=== PATIENT | male | born 1955 | race Caucasian/White ===

== ENCOUNTER 2016-10-23 13:14 | Inpatient (IN) | payer MEDICARE, OTHER ==
[~2016-10-23] VITALS: Ht 180.3 cm; Wt 117.0 kg
--- NOTE | ~2016-10-23 | US89 ---
[facility] A Service of [facility] & [facility] RADIOLOGY TEXT RESULTS PATIENT: FIOR CONNORS LOCATION: A : 54 UNIT #: [id number] AGE: [address]: Corie Johnson MD SEX: M ORDER DR: [id number] [facility] [address] [place], [place] [address] [id number] MR#: [id number] #: [id number] NAME: FIOR CONNORS : 1955 SEX: M STUDY DATE/TIME: 10/23/2016 13:50 UNIT: [facility] ROOM: [facility] STUDY DESCRIPTION: US Lower Ext Arterial Exam Attending Physician: Corie Johnson M.D. Ordering Physician: Mary Perez P.A.-C. Primary Care Physician: Manoj Walter M.D. MEDICAL IMAGING REPORT This report is preliminary unless electronic signature is present EXAM Bilateral lower extremity arterial PVR HISTORY Bilateral lower extremity claudication for several years. Lower extremity numbness and tingling. Evaluate for peripheral vascular disease. FINDINGS Peak brachial pressures are 129 on the right and 116 on the left. At the right ankle, peak pressures are 133 dorsalis pedis and 140 posterior tibial, for a ankle-brachial index of 1.03 at the dorsalis pedis and 1.09 at the posterior tibial. Right great toe pressure is 95 for a toe - brachial index of 0.74. At the left ankle, peak pressures are 148 posterior tibial and 134 dorsalis pedis, for an ankle-brachial index of 1.15 at the posterior tibial and 1.04 at the dorsalis pedis. The left great toe pressure is 127 for a toe - brachial index of 0.98. Normal pulse volume recordings at the ankles bilaterally. IMPRESSION Normal examination. Normal ankle-brachial indices measuring 1.09 on the right and 1.15 on the left. Dictated by... Joshua Koehler M.D. THIS IS AN ELECTRONICALLY VERIFIED REPORT Joshua Koehler M.D. at 10/23/2016 11:35 PM DFL/rnr [facility] A Service of [facility] & [facility] RADIOLOGY TEXT RESULTS PATIENT: FIOR CONNORS LOCATION: [facility] 217-01 : 54 UNIT #: [id number] AGE: [address]: Corie Johnson MD SEX: M ORDER DR: TD: 10/23/2016 22:20 JOB #: [id number] MEDICAL IMAGING REPORT Page 1 of 1 COPY
--- NOTE | ~2016-10-23 | DS ---
Unit #: [id number] #: [id number] Patient: FIOR CONNORS [id number] [address] [address] [id number] I MR#: [id number] NAME: FIOR CONNORS ROOM: 217 Age: 61 Sex: M Admission Date: 10/23/2016 : 1955 Discharge Date: 10/25/2016 Attending Physician: Shiela Urrutia M.D. Primary Care Physician: Manjo Walter M.D. DISCHARGE SUMMARY PRIMARY CARE PROVIDER Dr. Manoj Walter. PRINCIPAL DIAGNOSES 1. Right leg cellulitis likely staph-induced failing outpatient treatment. 2. Chronic respiratory failure, maintained on 4 L of oxygen per nasal cannula continuously. 3. Hypertension. 4. Chronic obstructive pulmonary disease. 5. Chronic diastolic congestive heart failure without exacerbation. 6. Depression. 7. Pulmonary hypertension. 8. Degenerative disk disease. 9. Tobaccoism. 10. Obesity. 11. Polycythemia. 12. Thrombocytopenia. 13. Gastroesophageal reflux disease. CONSULTANTS None. PROCEDURES Bilateral lower extremity arterial Doppler which was normal. Right ankle brachial indices 1.09 and 1.15 on the left. Chest x-ray on 10/23/2016 which was negative. CLINICAL HISTORY AND HOSPITAL COURSE Mr. Connors is a 61-year-old male, who presents to the emergency department with increasing right leg swelling and erythema. The patient had venous Doppler done on 10/10/2016 as an outpatient, which was negative for DVT. The patient was placed on clindamycin, however, he is still having increasing swelling and redness of the right leg and subsequently presented to the emergency department. ABIs done in the emergency department was unremarkable. The patient was afebrile and had no evidence of leukocytosis. He was placed in the hospital for treatment of cellulitis failing outpatient therapy. The patient was placed on empiric vancomycin and Zosyn. He has remained afebrile and again white blood cell count has remained normal. His cellulitis is improving, but it might appear to be somewhat slow on current antibiotics. I am going to change him to Zyvox and watch him for portion of the day. The patient is adamant. He would like to go home Unit #: [id number] #: [id number] Patient: FIOR CONNORS today as he has show some clinical improvement later in the day on Zyvox and we can get it arrange. He can be discharged home later today. I will note, the patient had persistent polycythemia and thrombocytopenia. I suspect his thrombocytosis is secondary to hypoxia particularly given he likely has obstructive sleep apnea requiring CPAP therapy, this can be followed up as an outpatient. DISCHARGE CONDITION Stable. DISCHARGE STATUS Discharged to home. DISCHARGE MEDICATIONS Lyrica 200 mg b.i.d., Abilify 10 mg daily, Klonopin 0.5 mg b.i.d., Norvasc 5 mg daily, Lasix 40 mg daily, Percocet 7.5/325 one tablet p.o. q.i.d. p.r.n. for pain, OxyContin 30 mg b.i.d., Nexium 40 mg daily, Klor-Con 20 mEq b.i.d., folic acid 1 mg daily, vitamin B12 1000 mcg p.o. daily, and Zyvox 600 mg p.o. b.i.d. for 10 days. DISCHARGE INSTRUCTIONS The patient was instructed to follow a heart healthy low calorie diet. He can increase activity as tolerated. He wears oxygen at 4 L per nasal cannula at all times. FOLLOWUP The patient can follow up with his primary care provider, Dr. Walter, next week. Dictated by... Shiela Urrutia M.D. LUDWIN/lee ann TD: 10/27/2016 23:57 JOB #: [id number] DISCHARGE SUMMARY Page 1 of 1 X hSiela Urrutia MD DISCHARGE SUMMARY
--- NOTE | ~2016-10-23 | HP ---
Unit #: [id number] #: [id number] Patient: FIOR CONNORS [id number] [address] [address] [id number] I MR#: [id number] NAME: FIOR CONNORS. ROOM: 82565 Age: 61 Sex: M Admission Date: 10/23/2016 : 1955 Attending Physician: Corie Johnson M.D. Primary Care Physician: Manoj Walter M.D. HISTORY AND PHYSICAL CHIEF COMPLAINT Right leg swelling. HISTORY OF PRESENT ILLNESS The patient is a 61-year-old male with a past medical history of hypertension, COPD, chronic respiratory failure, CHF, degenerative disc disease, depression, diverticular disease, and pulmonary hypertension, who presented to the emergency department for evaluation of the above. The patient states that he noticed redness in his leg about a month ago. The redness and swelling have resolved in the past with elevation of the leg. This persisted. He saw his primary care physician and was prescribed clindamycin. He still has a few pills left. The symptoms have persisted and in fact gotten worse, and so he presented to the emergency department for further evaluation. In the emergency department, ankle-brachial indices were normal. Chest x-ray showed nothing acute. He was given vancomycin, as well as Percocet. He is being admitted to [facility] for evaluation and further treatment. PAST MEDICAL HISTORY 1. Admission to [facility] May 15-2016, for acute respiratory failure and COPD. 2. Chronic obstructive pulmonary disease followed by Dr. Gerber. 3. Chronic respiratory failure on four liters of oxygen continuous. 4. Congestive heart failure. The patient had an echocardiogram March 03, 2012, that showed an ejection fraction greater than 55%. 5. Degenerative disc disease. 6. Depression. 7. Diverticular disease. 8. Gastritis. 9. Hypertension. 10. Pulmonary hypertension. PAST SURGICAL HISTORY 1. Back surgery. 2. Leg surgery. 3. Finger surgery. SOCIAL HISTORY The patient lives with his . He smokes a pack of cigarettes daily. FAMILY HISTORY Unit #: [id number] #: [id number] Patient: FIOR CONNORS Notable for his mother having dementia. His dad had lung cancer. ALLERGIES No known allergies. HOME MEDICATIONS 1. Potassium 20 mEq twice daily. 2. Cyanocobalamin 1000 mcg daily. 3. Klonopin 0.5 mg twice daily. 4. Lasix 40 mg daily. 5. Oxycodone and acetaminophen 7.5/325 at 4 times daily p.r.n. 6. Nexium 40 mg daily. 7. Abilify 10 mg daily. 8. OxyContin 60 mg daily. 9. Folic acid 1 mg daily. 10. Lyrica 200 mg twice daily. 11. Norvasc 5 mg daily. 12. Clindamycin 300 mg t.i.d. REVIEW OF SYSTEMS A complete review of systems is negative except as indicated in the History of Present Illness. PHYSICAL EXAMINATION VITAL SIGNS: Temperature is 97.5, pulse 99, respirations 16, blood pressure 116/83, and oxygen saturation is 92% on room air. GENERAL: Patient is a male who is awake, alert, and in no acute distress. HEENT: Head is atraumatic. Mucous membranes are moist. NECK: Supple. Trachea is midline. CARDIOVASCULAR: Regular rate and rhythm. LUNGS: Clear to auscultation bilaterally with no increased work of breathing. ABDOMEN: Obese and soft with bowel sounds present in all four quadrants. EXTREMITIES: The right lower extremity is erythematous circumferentially, warm, and tender to palpation. There is 2+ pitting edema. I am unable to palpate a dorsalis pedis pulse. NEUROLOGIC: Patient is awake and alert. He follows commands. PSYCHIATRIC: Mood and affect are normal. Patient is cooperative. SKIN: Skin of examined areas demonstrates the previously described abnormalities. DIAGNOSTIC STUDIES LABORATORY: Complete blood count notable for hemoglobin and hematocrit of 17.2 and 52.1, respectively, and platelets 134,000. Basic metabolic panel notable for sodium of 134, chloride 98, and glucose 130. IMAGING: Chest x-ray shows nothing acute. Ankle-brachial indices are normal. ASSESSMENT The patient is a 61-year-old male with: 1. Right lower extremity cellulitis that has failed outpatient treatment with clindamycin. The patient received vancomycin in the emergency department. 2. Hypertension. 3. Chronic obstructive pulmonary disease with continued tobacco abuse. Unit #: [id number] #: [id number] Patient: FIOR CONNORS 4. Chronic respiratory failure on four liters of oxygen per nasal cannula. 5. Congestive heart failure with ejection fraction greater than 55% noted on echocardiogram March 05, 2012. 6. Degenerative disc disease. 7. Depression. 8. Diverticular disease. 9. Pulmonary hypertension. PLAN 1. Admit to med/surg. 2. Healthy-heart diet. 3. Blood cultures x2. 4. Vancomycin IV and Zosyn IV pending further workup. 5. Check CPK. 6. Check BNP. 7. Supplemental oxygen. 8. P.r.n. DuoNebs. 9. P.r.n. Tylenol. 10. Repeat labs in the morning. 11. Additional workup and consultants based on above. 1. Dictated by Lili Sheldon/gin TD: 10/23/2016 20:15 JOB #: [id number] HISTORY AND PHYSICAL Page 1 of 1 X Corie Johsnon MD X HISTORY AND PHYSICAL
--- NOTE | ~2016-10-23 | CR72 ---
[facility] A Service of [facility] & [facility] RADIOLOGY TEXT RESULTS PATIENT: FIOR CONNORS LOCATION: A : 54 UNIT #: [id number] AGE: [address]: Corie Johnson MD SEX: M ORDER DR: [id number] [facility] [address]. [place], [place] [address] [id number] I MR#: [id number] Acc #: [id number] NAME: FIOR CONNORS : 1955 SEX: M STUDY DATE/TIME: 10/23/2016 14:15 UNIT: [facility] ROOM: [facility] STUDY DESCRIPTION: CR Chest Single View Portable Attending Physician: Corie Johnson M.D. Ordering Physician: Mary Perez P.A.-C. Primary Care Physician: Manoj Walter M.D. MEDICAL IMAGING REPORT This report is preliminary unless electronic signature is present EXAM Portable chest HISTORY CHF and chest pain for 1 month. FINDINGS Mild cardiac enlargement. Normal pulmonary vascularity. No airspace infiltrates or effusions. Calcified right hilar nodes. Remainder of the chest is negative. IMPRESSION No acute findings and no active disease. Dictated by... Joshua Koehler M.D. THIS IS AN ELECTRONICALLY VERIFIED REPORT Joshua Koehler M.D. at 10/23/2016 11:35 PM DFL/pcl TD: 10/23/2016 21:32 JOB #: [id number] MEDICAL IMAGING REPORT Page 1 of 1 COPY
[~2016-10-23 13:14] MED LIST: ABILIFY10 MG PO; ALBUTEROL MININEB NEB; ALBUTEROL17 GM INH; ALENDRONATE SOD70 MG PO; AMLODIPINE BESYL5 MG PO; ASPIRIN81 M1 PO; CITRATE OF MAG296 M1 PO; COLACE PO; CYANOCOBALAM1000 MCG PO; CYMBALTA30 MG PO; FOLIC ACID1 MG PO; K-TAB ER20 MEQ PO; KLONOPIN0.5 MG PO; KLOR-CON PO; LANSOPRAZOLE30 M1 PO; LANSOPRAZOLE30 MG PO; LASIX PO; LEVAQUIN PO; LYRICA200 MG PO; MEDROL4 MG/DOSE- PO; METHOTREXATE2.5 MG PO; NEXIUM PO; NYSTATIN30 GM TOP; OXYCONTIN PO; OXYCONTIN10 MG PO; OXYCONTIN30 MG PO; OXYCONTIN40 MG PO; OXYCONTIN80 MG PO; PERCOCET 10/3251 TAB PO; PERCOCET 7.5-31 EACH PO; PERCOCET10 PO; PREDNISOLONE5 MG PO; PREDNISONE PO; PREDNISONE5 M1 PO; SEROQUEL400 MG PO; SYMBICORT INH; TEMAZEPAM PO; TEMAZEPAM30 MG PO; ZITHROMAX1 G/PKT PO; ZOCOR20 MG PO
[2016-10-23 14:27] LABS: BASOPHIL# 0.1 X10e3 (0-0.3); BASOPHIL% 1.3 % (0-2.5); EOSINOPHIL# 0.1 X10e3 (0-0.7); EOSINOPHIL% 1.3 % (0.0-7.0); HEMATOCRIT 52.1 % (38.0-50.0); HEMOGLOBIN 17.2 gm/dL (13.0-16.0); LYMPHOCYTE# 1.1 X10e3 (1.0-3.5); LYMPHOCYTE% 15.7 % (17.0-45.0); MEAN CELL VOLUME 95.7 FL (83-96); MEAN CORPUSCULAR HEMOGLOBIN 31.7 PG (28-34); MEAN CORPUSCULAR HGB CONC 33.1 g/dL (30-36); MEAN PLATELET VOLUME 9.3 FL (6.5-11.5); MONOCYTE# 0.6 X10e3 (0-1.0); NEUTROPHIL# 5.3 X10e3 (1.5-7.1); NEUTROPHIL% 73.7 % (40-75); PLATELET COUNT 134 X10e3 (140-420); RED BLOOD COUNT 5.44 X10e (3.90-5.60); RED CELL DISTRIBUTION WIDTH 14.4 % (11.0-15.5); WHITE BLOOD COUNT 7.2 X10e3 (4.0-10.5)
[2016-10-23 14:31] LABS: DIFF IND NO
[2016-10-23 14:45] LABS: CALCIUM SERUM 8.6 mg/dL (8.4-10.2); CREATININE SERUM 1.1 mg/dL (0.6-1.4); GLOM FILT RATE Estimated 71.6 mL/min (>60); POTASSIUM 4.3 mmol/L (3.5-5.1)
[2016-10-23] MEDS ORDERED: PATIENT'S PHARMACY (15:26)
[2016-10-23] MEDS ORDERED: KCL PO (15:26)
[2016-10-23] MEDS ORDERED: LASIX PO (15:27)
[2016-10-23] MEDS ORDERED: NEXIUM PO (15:27)
[2016-10-23] MEDS ORDERED: OXYCODON-ACETA1 EAC1 PO (15:27)
[2016-10-23] MEDS ORDERED: KLONOPIN0.5 M3 PO (15:27)
[2016-10-23] MEDS ORDERED: CYANOCOBALAM1000 MCG PO (15:27)
[2016-10-23] MEDS ORDERED: OXYCONTIN PO (15:28)
[2016-10-23] MEDS ORDERED: FOLIC ACID1 MG PO (15:28)
[2016-10-23] MEDS ORDERED: ABILIFY10 MG PO (15:28)
[2016-10-23] MEDS ORDERED: NORVASC PO (15:29)
[2016-10-23] MEDS ORDERED: LYRICA PO (15:29)
[2016-10-23] MEDS ORDERED: CLEOCIN150 M1 PO (15:30)
[2016-10-24] MEDS ORDERED: OXYCONTIN30 MG PO (00:03)
[2016-10-24 06:12] LABS: BASOPHIL# 0.1 X10e3 (0-0.3); BASOPHIL% 1.1 % (0-2.5); EOSINOPHIL# 0.1 X10e3 (0-0.7); EOSINOPHIL% 1.2 % (0.0-7.0); HEMATOCRIT 51.4 % (38.0-50.0); HEMOGLOBIN 16.8 gm/dL (13.0-16.0); LYMPHOCYTE# 1.3 X10e3 (1.0-3.5); LYMPHOCYTE% 18.9 % (17.0-45.0); MEAN CELL VOLUME 96.8 FL (83-96); MEAN CORPUSCULAR HEMOGLOBIN 31.6 PG (28-34); MEAN CORPUSCULAR HGB CONC 32.6 g/dL (30-36); MEAN PLATELET VOLUME 9.4 FL (6.5-11.5); MONOCYTE# 0.6 X10e3 (0-1.0); MONOCYTE% 8.5 % (3.0-12.0); NEUTROPHIL# 4.8 X10e3 (1.5-7.1); NEUTROPHIL% 70.3 % (40-75); PLATELET COUNT 117 X10e3 (140-420); RED BLOOD COUNT 5.31 X10e (3.90-5.60); RED CELL DISTRIBUTION WIDTH 14.3 % (11.0-15.5); WHITE BLOOD COUNT 6.9 X10e3 (4.0-10.5)
[2016-10-24 06:16] LABS: DIFF IND NO
[2016-10-24 06:49] LABS: ALBUMIN SERUM 3.8 g/dL (3.5-5.0); BILIRUBIN,TOTAL 0.8 mg/dL (0.2-2.0); CALCIUM SERUM 8.8 mg/dL (8.4-10.2); GLOM FILT RATE Estimated 80.3 mL/min (>60); POTASSIUM 4.3 mmol/L (3.5-5.1)
[2016-10-25 06:10] LABS: HEMATOCRIT 52.9 % (38.0-50.0); HEMOGLOBIN 16.9 gm/dL (13.0-16.0); MEAN CELL VOLUME 97.8 FL (83-96); MEAN CORPUSCULAR HEMOGLOBIN 31.2 PG (28-34); MEAN CORPUSCULAR HGB CONC 31.9 g/dL (30-36); MEAN PLATELET VOLUME 9.5 FL (6.5-11.5); RED BLOOD COUNT 5.41 X10e (3.90-5.60); RED CELL DISTRIBUTION WIDTH 14.4 % (11.0-15.5); WHITE BLOOD COUNT 6.5 X10e3 (4.0-10.5)
[2016-10-25 06:42] LABS: BUN/CREATININE RATIO 9.09; CALCIUM SERUM 8.7 mg/dL (8.4-10.2); CREATININE SERUM 1.1 mg/dL (0.6-1.4); GLOM FILT RATE Estimated 71.6 mL/min (>60); POTASSIUM 4.1 mmol/L (3.5-5.1)
[2016-10-25] MEDS ORDERED: ZYVOX PO (16:09)
== END 2016-10-25 16:29 | disposition home or self-care (01) | DRG 603 ==
LOC: CED 13:14 → CEDOF 16:50 → C2A 16:50
PROVIDERS: Family Medicine; Internal Medicine; Physician Assistant
DX: L03.115 Cellulitis of right lower limb (principal); J96.10 Chronic respiratory failure, unspecified whether with hypoxia or hypercapnia; Z99.81 Dependence on supplemental oxygen; I11.0 Hypertensive heart disease with heart failure; I50.32 Chronic diastolic (congestive) heart failure; I27.2 Other secondary pulmonary hypertension; D69.59 Other secondary thrombocytopenia; B95.8 Unspecified staphylococcus as the cause of diseases classified elsewhere; J44.9 Chronic obstructive pulmonary disease, unspecified; F17.200 Nicotine dependence, unspecified, uncomplicated; F32.9 Major depressive disorder, single episode, unspecified; E66.9 Obesity, unspecified; Z68.35 Body mass index [BMI] 35.0-35.9, adult; D75.1 Secondary polycythemia; K21.9 Gastro-esophageal reflux disease without esophagitis; G47.33 Obstructive sleep apnea (adult) (pediatric); Z80.1 Family history of malignant neoplasm of trachea, bronchus and lung
CPT/HCPCS: 36415; 71010; 80048; 80053; 82550; 83880; 85025; 85027; 87040; 93923; 94760; 99285; J2543; J3370